=== PATIENT | male | born 1960 | race Caucasian/White ===

== ENCOUNTER 2017-08-10 04:32 | Observation (INO) | payer BC ==
[~2017-08-10] VITALS: Ht 190.5 cm; Wt 114.5 kg
[2017-08-10] VITALS (16 sets, daily range): BP systolic 124–190; BP diastolic 72–100; Ht 190.5 cm; Wt 114.5 kg
[~2017-08-10 04:32] MED LIST: ASPI1TAB35 PO; CHLOR25 PO
--- NOTE | 2017-08-10 04:47 | ER Report ---
History and Physical Time Seen By MD: 04:46 Hx. of Stated Complaint: Epigastric pain for a few days. Woke him from sleep at 0200. Pt states he is having trouble passing gas. NO chest pain or sob. HPI/ROS CHIEF COMPLAINT: abdominal pain HISTORY OF PRESENT ILLNESS: This is a 56 year old male. He has been having epigastric pain for a few days now. Woke from sleep tonight with worsening pain. Had a normal bowel movement yesterday, but feels bloated and trouble passing gas. Nothing makes the pain worse or better. Normal urination. No fevers or chills. Nausea, but no vomiting. REVIEW OF SYSTEMS: Cardiovascular: No chest pain. Respiratory: No cough. No shortness of breath. Musculoskeletal: No back pain. Skin: No rashes. Neurological: No weakness or numbness Allergies: Coded Allergies: No Known Drug Allergies (Unverified , 08/10/17) Home Meds Active Scripts Amoxicillin/Pot Clav 875-125 Mg Tab (AUGMENTIN 875-125 TABLET) 1 Each Tablet, 1 TAB PO Q12H, #4 TAB Prov:GIFTY THORNE MD 08/11/17 Ketorolac Tromethamine (KETOROLAC TROMETHAMINE) 10 Mg Tab, 10 MG PO Q6H, #16 TAB Prov:GIFTY THORNE MD 08/11/17 Hydrocodone Bit/Acetaminophen (NORCO 5-325 TABLET) 1 Each Tablet, 1 EACH PO Q4H Y for PAIN, #30 TAB Prov:GIFTY THORNE MD 08/11/17 Discontinued Reported Medications Aspirin/Acetaminophen/Caffeine (EXCEDRIN EXTRA STRENGTH CAPLET) 1 Each Tablet, 1 EACH PO 01/13/17 Discontinued Scripts Chlorthalidone (CHLORTHALIDONE) 25 Mg Tab, 25 MG PO QDAY, #30 TAB Prov:SOLITARIO VALENTINE DO 01/13/17 Reviewed Nurses Notes: Yes Hx Smoking: No Hx Substance Use Disorder: No Hx Alcohol Use: Yes (12 pack- a case a week. `) Constitutional Vital Sign - Last 24 Hours 08/10/17 08/10/17 08/10/17 08/10/17 04:37 04:41 04:44 04:47 Temp 98.3 Pulse 62 61 Resp 16 B/P (MAP) 189/115 (139) 189/115 171/118 (135) Pulse Ox 96 96 O2 Delivery Room Air 6/12/18 6/12/18 6/12/18 6/12/18 05:00 05:02 05:17 05:20 Pulse 67 61 B/P (MAP) 173/102 (125) 166/110 (128) Pulse Ox 99 08/10/17 08/10/17 08/10/17 08/10/17 05:32 05:37 06:00 06:05 Pulse 61 56 57 Resp 15 9 25 B/P (MAP) 195/87 (123) Pulse Ox 96 95 93 08/10/17 08/10/17 08/10/17 08/10/17 06:20 06:35 06:40 06:50 Pulse 60 56 59 Resp 14 20 B/P (MAP) 192/119 (143) 203/109 (140) Pulse Ox 90 93 08/10/17 08/10/17 07:00 07:05 Pulse 56 Resp 19 B/P (MAP) 170/91 (117) Pulse Ox 93 Physical Exam General Appearance: The patient is alert. No acute distress. Eyes: Pupils are equal, round. No pallor, injection or icterus. ENT: Mucous membranes are moist. Normal oral mucosa. Posterior oropharynx is normal. Neck: Supple and non tender. No lymphadenopathy. Respiratory: Lungs are clear to auscultation. Cardiovascular: Regular rate and rhythm. No murmurs, gallops or rubs. Normal capillary refill. Gastrointestinal: Abdomen has diffuse discomfort, worst in epigastric area. Nondistended. No rebound or guarding. Hyperactive bowel sounds. Neurological: Alert and oriented x3. Skin: Warm and dry. No rashes. Musculoskeletal: No tenderness in palpation of the cervical, thoracic and lumbar spine. DIFFERENTIAL DIAGNOSIS: After history and physical exam, differential diagnosis was considered for epigastric pain including but not limited to biliary colic, cholecystitis, peptic ulcer disease, pancreatitis, and gastroenteritis. Medical Decision Making Data Points Result Diagram: 08/10/17 0454 08/10/17 0454 Laboratory Hematology Test 08/10/17 04:53 08/10/17 04:54 Urine Color Yellow Urine Clarity Clear Urine pH 5.0 pH (4.8-9.5) Urine Specific [place] 1.024 Urine Protein Negative mg/dL (NEGATIVE) Urine Glucose (UA) Negative mg/dL (NEGATIVE) Urine Ketones Negative mg/dL (NEGATIVE) Urine Blood Small (NEGATIVE) Urine Nitrite Negative (NEGATIVE) Urine Bilirubin Negative (NEGATIVE) Urine Urobilinogen Negative mg/dL (0.2-1.9) Urine Leukocyte Esterase Negative (NEGATIVE) Urine RBC 1 /HPF (0-2/HPF) Urine WBC 1 /HPF (0-5/HPF) Urine Squamous Epithelial Cells Few /LPF (</=FEW) Urine Bacteria Negative /HPF (NONE-FEW) Urine Mucus Few /HPF (NONE-FEW) Red Blood Count 5.49 M/uL (4.00-5.60) Mean Corpuscular Volume 88.0 fL (80.0-96.0) Mean Corpuscular Hemoglobin 30.4 pg (26.0-33.0) Mean Corpuscular Hemoglobin Concent 34.5 g/dL (32.0-36.0) Red Cell Distribution Width 13.7 % (11.5-14.5) Mean Platelet Volume 7.4 fL (7.2-11.1) Neutrophils (%) (Auto) 74.2 % (39.4-72.5) Lymphocytes (%) (Auto) 16.0 % (17.6-49.6) Monocytes (%) (Auto) 8.8 % (4.1-12.4) Eosinophils (%) (Auto) 0.5 % (0.4-6.7) Basophils (%) (Auto) 0.5 % (0.3-1.4) Nucleated RBC Relative Count (auto) 0.0 /100WBC Neutrophils # (Auto) 7.5 K/uL (2.0-7.4) Lymphocytes # (Auto) 1.6 K/uL (1.3-3.6) Monocytes # (Auto) 0.9 K/uL (0.3-1.0) Eosinophils # (Auto) 0.0 K/uL (0.0-0.5) Basophils # (Auto) 0.1 K/uL (0.0-0.1) Nucleated RBC Absolute Count (auto) 0.00 K/uL Sodium Level 137 mmol/L (137-145) Potassium Level 4.2 mmol/L (3.5-5.0) Chloride Level 97 mmol/L (98-107) Carbon Dioxide Level 27 mmol/L (22-30) Blood Urea Nitrogen 19 mg/dl (9-21) Creatinine 0.90 mg/dl (0.66-1.25) Glomerular Filtration Rate Calc > 60.0 Random Glucose 126 mg/dl (75-110) Lactate 1.7 mmol/L (0.7-2.1) Calcium Level 9.5 mg/dl (8.4-10.2) Total Bilirubin 1.6 mg/dl (0.2-1.3) Aspartate Amino Transf (AST/SGOT) 35 U/L (0-35) Alanine Aminotransferase (ALT/SGPT) 57 U/L (0-56) Alkaline Phosphatase 117 U/L (0-126) C-Reactive Protein 2.7 mg/dl (<1.0) Total Protein 7.1 gm/dl (6.3-8.2) Albumin 4.3 g/dl (3.5-5.0) Amylase Level < 30 U/L (0-110) Lipase 121 U/L (23-300) Helicobacter pylori IgG Antibody Negative (NEGATIVE) Chemistry Test 08/10/17 04:53 08/10/17 04:54 Urine Color Yellow Urine Clarity Clear Urine pH 5.0 pH (4.8-9.5) Urine Specific [place] 1.024 Urine Protein Negative mg/dL (NEGATIVE) Urine Glucose (UA) Negative mg/dL (NEGATIVE) Urine Ketones Negative mg/dL (NEGATIVE) Urine Blood Small (NEGATIVE) Urine Nitrite Negative (NEGATIVE) Urine Bilirubin Negative (NEGATIVE) Urine Urobilinogen Negative mg/dL (0.2-1.9) Urine Leukocyte Esterase Negative (NEGATIVE) Urine RBC 1 /HPF (0-2/HPF) Urine WBC 1 /HPF (0-5/HPF) Urine Squamous Epithelial Cells Few /LPF (</=FEW) Urine Bacteria Negative /HPF (NONE-FEW) Urine Mucus Few /HPF (NONE-FEW) White Blood Count 10.1 k/uL (4.5-11.0) Red Blood Count 5.49 M/uL (4.00-5.60) Hemoglobin 16.7 g/dL (14.0-18.0) Hematocrit 48.3 % (42.0-52.0) Mean Corpuscular Volume 88.0 fL (80.0-96.0) Mean Corpuscular Hemoglobin 30.4 pg (26.0-33.0) Mean Corpuscular Hemoglobin Concent 34.5 g/dL (32.0-36.0) Red Cell Distribution Width 13.7 % (11.5-14.5) Platelet Count 277 K/uL (150-450) Mean Platelet Volume 7.4 fL (7.2-11.1) Neutrophils (%) (Auto) 74.2 % (39.4-72.5) Lymphocytes (%) (Auto) 16.0 % (17.6-49.6) Monocytes (%) (Auto) 8.8 % (4.1-12.4) Eosinophils (%) (Auto) 0.5 % (0.4-6.7) Basophils (%) (Auto) 0.5 % (0.3-1.4) Nucleated RBC Relative Count (auto) 0.0 /100WBC Neutrophils # (Auto) 7.5 K/uL (2.0-7.4) Lymphocytes # (Auto) 1.6 K/uL (1.3-3.6) Monocytes # (Auto) 0.9 K/uL (0.3-1.0) Eosinophils # (Auto) 0.0 K/uL (0.0-0.5) Basophils # (Auto) 0.1 K/uL (0.0-0.1) Nucleated RBC Absolute Count (auto) 0.00 K/uL Glomerular Filtration Rate Calc > 60.0 Lactate 1.7 mmol/L (0.7-2.1) Calcium Level 9.5 mg/dl (8.4-10.2) Total Bilirubin 1.6 mg/dl (0.2-1.3) Aspartate Amino Transf (AST/SGOT) 35 U/L (0-35) Alanine Aminotransferase (ALT/SGPT) 57 U/L (0-56) Alkaline Phosphatase 117 U/L (0-126) C-Reactive Protein 2.7 mg/dl (<1.0) Total Protein 7.1 gm/dl (6.3-8.2) Albumin 4.3 g/dl (3.5-5.0) Amylase Level < 30 U/L (0-110) Lipase 121 U/L (23-300) Helicobacter pylori IgG Antibody Negative (NEGATIVE) Urinalysis Test 08/10/17 04:53 Urine Color Yellow Urine Clarity Clear Urine pH 5.0 pH (4.8-9.5) Urine Specific [place] 1.024 Urine Protein Negative mg/dL (NEGATIVE) Urine Glucose (UA) Negative mg/dL (NEGATIVE) Urine Ketones Negative mg/dL (NEGATIVE) Urine Blood Small (NEGATIVE) Urine Nitrite Negative (NEGATIVE) Urine Bilirubin Negative (NEGATIVE) Urine Urobilinogen Negative mg/dL (0.2-1.9) Urine Leukocyte Esterase Negative (NEGATIVE) Urine RBC 1 /HPF (0-2/HPF) Urine WBC 1 /HPF (0-5/HPF) Urine Squamous Epithelial Cells Few /LPF (</=FEW) Urine Bacteria Negative /HPF (NONE-FEW) Urine Mucus Few /HPF (NONE-FEW) EKG/Imaging Imaging ABDOMEN/PELVIS WITH CONTRAST HISTORY: Epigastric pain for 3 days. History of hernia. COMPARISON: None. TECHNIQUE: Axial images were obtained from the lung bases through the symphysis pubis with intravenous contrast. Sagittal and coronal reformats were performed. One of the following dose optimization techniques was utilized in the performance of this exam: Automated exposure control; adjustment of the mA and/ or kV according to the patient's size; or use of an iterative reconstruction technique. Specific details can be referenced in the facility's radiology CT exam operational policy. CONTRAST: 75 mL IV Isovue-370. FINDINGS: Lower chest: Normal. Liver: Normal. Gallbladder/biliary: Gallbladder is diffusely enlarged, measuring greater than 12 cm in length, and there are inflammation and a small amount of fluid surrounding the gallbladder and tracking adjacent to the duodenum and inferiorly within the abdomen and pelvis. No intrahepatic or extrahepatic ductal dilation. Pancreas: Normal. Spleen: Normal. Adrenals: Normal. Kidneys/ureters/bladder: Normal. GI/mesentery/peritoneal cavity: There is no bowel obstruction. There is no wall thickening or pericolonic stranding. The appendix is normal. No intra-abdominal free air. Vessels: There is mild atherosclerotic disease without aneurysm. No dissection. Nodes: Normal. Pelvis: Trace free fluid, likely secondary to cholecystitis. There are pelvic phleboliths. There are moderate size bilateral fat-containing inguinal hernias. There are surgical clips in the anterior right lower quadrant that may relate to prior inguinal hernia repair. Bones/vertebra/soft tissues: There is a fluid attenuating structure tracking anterior to the left proximal femur (image 188 series 2) and anterolateral to the left ischium, potentially a bursa. It measures 4 cm in size. There is irregularity and deformity of the left ischium and there are adjacent soft tissue calcifications. These findings may all relate to previous trauma. There is mild degenerative change of the spine. There is 3 mm retrolisthesis of L4 compared to L5. Vertebral body heights are maintained. There are prominent flowing anterior osteophytes, compatible with diffuse idiopathic skeletal hyperostosis that extends from T6 through T11. More inferior osteophytes are not fused. IMPRESSION: 1. Findings are compatible with cholecystitis. No calcified gallstones. These findings were discussed by phone with NILSA WU on 08/10/2017 6:16 AM. Report Dictated By: Tisha Orozco at 08/10/2017 6:02 AM ED Course/Re-evaluation Clinical Indication for ER IV: Hydration, IV Access ED Course Initially given Morphine and Zofran. Bassett like the Morphine amplified the pain. Given Dilaudid 1mg for pain which did help. His labs are fairly unremarkable, but CT scan shows significant inflammation and enlarged gallbladder. Called Dr. Thorne who will be coming to evaluate the patient for Cholecystitis. Decision to Disposition Date: Aug 10, 2017 Decision to Disposition Time: 07:00 Depart Departure Latest Vital Signs Vital Signs Date Time Temp Pulse Resp B/P (MAP) Pulse Ox O2 Delivery O2 Flow Rate FiO2 08/10/17 07:05 56 19 93 08/10/17 07:00 170/91 (117) 08/10/17 04:41 98.3 Room Air Impression: Primary Impression: Cholecystitis Condition: Improved Disposition: ADMIT FROM ER TO OR New Scripts Amoxicillin/Pot Clav 875-125 Mg Tab (AUGMENTIN 875-125 TABLET) 1 Each Tablet 1 TAB PO Q12H, #4 TAB Prov: GIFTY THORNE MD 08/11/17 Ketorolac Tromethamine (KETOROLAC TROMETHAMINE) 10 Mg Tab 10 MG PO Q6H, #16 TAB Prov: GIFTY THORNE MD 08/11/17 Hydrocodone Bit/Acetaminophen (NORCO 5-325 TABLET) 1 Each Tablet 1 EACH PO Q4H Y for PAIN, #30 TAB Prov: GIFTY THORNE MD 08/11/17 NILSA WU MD Aug 10, 2017 04:47
[2017-08-10] MEDS ORDERED: NS(*) 0.9% 1000 ML BAG 1,000 ML IV ONE (04:53)
[2017-08-10] MEDS ORDERED: MORPHINE 4 MG/ML SDV IVP ONE (04:55)
[2017-08-10] MEDS ORDERED: PANTOPRAZOLE SOD 40 MG IV VIAL IVP ONE (04:55)
[2017-08-10] MEDS ORDERED: ONDANSETRON 4 MG/2 ML VIAL IVP ONE (04:55)
[2017-08-10 05:02] LABS: PLATELET COUNT, AUTOMATED 277 K/uL (150-450)
[2017-08-10] MEDS ORDERED: IOPAMIDOL 76% 75 ML INFUS BTL 75 ML ONE (05:08)
[2017-08-10] MEDS ORDERED: HYDROmorphone* 1 MG/ML 1 MG/ML ML IVP ONE (06:05)
--- NOTE | 2017-08-10 06:24 | RADIOLOGY IMAGING REPORT ---
FACILITY: [facility] PATIENT NAME: Junior Gibbs : 1960 MR: [id number] V: [id number] EXAM DATE: ORDERING PHYSICIAN: NILSA WU TECHNOLOGIST: Location: [facility] Patient: Junior Gibbs : 1960 Visit/Account:[id number] Date of Sevice: 08/10/2017 ABDOMEN/PELVIS WITH CONTRAST HISTORY: Epigastric pain for 3 days. History of hernia. COMPARISON: None. TECHNIQUE: Axial images were obtained from the lung bases through the symphysis pubis with intravenou s contrast. Sagittal and coronal reformats were performed. One of the following dose optimization techniques was utilized in the performance of this exam: Autom ated exposure control; adjustment of the mA and/or kV according to the patient's size; or use of an i terative reconstruction technique. Specific details can be referenced in the facility's radiology CT exam operational policy. CONTRAST: 75 mL IV Isovue-370. FINDINGS: Lower chest: Normal. Liver: Normal. Gallbladder/biliary: Gallbladder is diffusely enlarged, measuring greater than 12 cm in length, and t here are inflammation and a small amount of fluid surrounding the gallbladder and tracking adjacent t o the duodenum and inferiorly within the abdomen and pelvis. No intrahepatic or extrahepatic ductal d ilation. Pancreas: Normal. Spleen: Normal. Adrenals: Normal. Kidneys/ureters/bladder: Normal. GI/mesentery/peritoneal cavity: There is no bowel obstruction. There is no wall thickening or pericol onic stranding. The appendix is normal. No intra-abdominal free air. Vessels: There is mild atherosclerotic disease without aneurysm. No dissection. Nodes: Normal. Pelvis: Trace free fluid, likely secondary to cholecystitis. There are pelvic phleboliths. There are moderate size bilateral fat-containing inguinal hernias. There are surgical clips in the anterior rig ht lower quadrant that may relate to prior inguinal hernia repair. Bones/vertebra/soft tissues: There is a fluid attenuating structure tracking anterior to the left pro ximal femur (image 188 series 2) and anterolateral to the left ischium, potentially a bursa. It measu res 4 cm in size. There is irregularity and deformity of the left ischium and there are adjacent soft tissue calcifications. These findings may all relate to previous trauma. There is mild degenerative change of the spine. There is 3 mm retrolisthesis of L4 compared to L5. Ve rtebral body heights are maintained. There are prominent flowing anterior osteophytes, compatible wit h diffuse idiopathic skeletal hyperostosis that extends from T6 through T11. More inferior osteophyte s are not fused. IMPRESSION: 1. Findings are compatible with cholecystitis. No calcified gallstones. These findings were discussed by phone with NILSA WU on 08/10/2017 6:16 AM. Report Dictated By: Tisha Orozco at 08/10/2017 6:02 AM Report E-Signed By: Tisha Orozco at 08/10/2017 6:20 AM WSN:[id number]
[2017-08-10] MEDS ORDERED: PIPERACILLIN/TAZO*3.375GM VIAL 3.375 GM in NS(*) 0.9% 100 ML ADDVANT BAG 100 ML IVPB ONE (07:05)
[2017-08-10] MEDS ORDERED: NORMOSOL R SOLN(*) 1000 ML BAG 1,000 ML IV PRN ×2 (07:11→14:45)
[2017-08-10] MEDS ORDERED: MORPHINE 1 MG/ML 30 ML PCA IV PRN (07:15)
[2017-08-10] MEDS ORDERED: ONDANSETRON 4 MG/2 ML VIAL IVP PRN (07:15)
[2017-08-10] MEDS ORDERED: PIPERACILLIN/TAZO*3.375GM VIAL 3.375 GM in NS(*) 0.9% 100 ML ADDVANT BAG 100 ML IVPB SCH ×2 (08:00→14:00)
--- NOTE | 2017-08-10 08:12 | General Surgery 1 H&P ---
History of Present Illness Chief Complaint epigastric pain History of Present Illness 56 yo male with a history of htn presents with a 2 day history of epigastric pain. it is steady and severe. no nausea or emesis. he has fever and chills. no change in bms no urinary complaints. no radiation to the back. he had a similar episode several months ago. seen in ed, ct suggests acute cholecystitis. History Other Past Surgeries: legs, hernia repair inguinal and finger Home Meds Discontinued Reported Medications Aspirin/Acetaminophen/Caffeine (EXCEDRIN EXTRA STRENGTH CAPLET) 1 Each Tablet, 1 EACH PO 01/13/17 Discontinued Scripts Chlorthalidone (CHLORTHALIDONE) 25 Mg Tab, 25 MG PO QDAY, #30 TAB Prov:SOLITARIO VALENTINE DO 01/13/17 Allergies: Coded Allergies: No Known Drug Allergies (Unverified , 08/10/17) Review of Systems History of Hypertension?: Yes History of Diabetes?: No History of DVT?: No Obstructive Sleep Apnea?: No History of Liver Disease?: No History of Kidney Disease?: No Respiratory: Denies Shortness of Breath, Denies Other Cardiovascular: Denies Chest Pain, Denies Other : Denies Dysuria, Denies Other Exam Vital Signs Date Time Temp Pulse Resp B/P (MAP) Pulse Ox O2 Delivery O2 Flow Rate FiO2 08/10/17 08:01 98.4 57 20 83 Room Air General Appearance: Alert, Awake GI: Other (tender to plapation in the epigastrium) Medical Decision Making Data Points Result Diagram: 08/10/17 0454 08/10/17 0454 Assessment and Plan Problems: (1) Cholecystitis Status: Acute Assessment & Plan: lap conrado with gram today. Copies to: GIFTY MEJIA MD Venous Thromboembolism Antithrombotics Is Pt On Any Antithrombotics?: No GIFTY MEJIA MD Aug 10, 2017 08:12
[2017-08-10] MEDS ORDERED: PANTOPRAZOLE SOD 40 MG IV VIAL IVP SCH (09:00)
[2017-08-10] MEDS ORDERED: IOPAMIDOL 61% 75 ML INFUS BTL 75 ML ONE (10:34)
[2017-08-10] MEDS ORDERED: ROPIVACAINE 0.2% 20 ML VIAL ONE (10:34)
[2017-08-10] MEDS ORDERED: fentaNYL CITR 250 MCG/5 ML AMP ONE (12:51)
[2017-08-10] MEDS ORDERED: LIDOCAINE MPF 1% 5 ML VIAL ONE (12:52)
[2017-08-10] MEDS ORDERED: PROPOFOL EMUL(*) 10MG/ML 20 ML 20 ML ONE (12:52)
[2017-08-10] MEDS ORDERED: ROCURONIUM BROM 10 MG/ML 10 ML ONE (13:00)
[2017-08-10] MEDS ORDERED: SUCCINYLCHOL CHL 200MG/10ML VL ONE (13:00)
[2017-08-10] MEDS ORDERED: DEXAMETHASONE SOD 4 MG/ML VIAL ONE (13:06)
[2017-08-10] MEDS ORDERED: ONDANSETRON 4 MG/2 ML VIAL ONE (13:07)
[2017-08-10] MEDS ORDERED: fentaNYL CITR 100 MCG/2 ML AMP ONE ×3 (13:30→15:08)
[2017-08-10] MEDS ORDERED: SUGAMMADEX SOD 500 MG/5 ML SDV ONE (13:41)
[2017-08-10] MEDS ORDERED: KETOROLAC 30 MG/ML VIAL ONE (14:27)
[2017-08-10] MEDS ORDERED: APAP/HYDROCODONE 325/5 TAB PO PRN (14:45)
--- NOTE | 2017-08-10 14:45 | Post Operative Progress Note ---
Post Operative Progress Note Date: Aug 10, 2017 Time: 14:44 Surgeon: josh Anesthesia: dr gay Pre-Op Diagnosis: acute cholecystitits Post-Op Diagnosis: gangrenous cholesystitis Procedure(s): lap conrado with GIFTY Schmitt MD Aug 10, 2017 14:45
--- NOTE | 2017-08-10 16:00 | RADIOLOGY IMAGING REPORT ---
FACILITY: [facility] - [place] PATIENT NAME: Junior Gibbs : 1960 MR: [id number] V: [id number] EXAM DATE: ORDERING PHYSICIAN: GIFTY MEJIA TECHNOLOGIST: Location: [facility] [place] Patient: Junior Gibbs : 1960 Visit/Account:[id number] Date of Sevice: 08/10/2017 Exam type: CHOLANGIOGRAM OPERATIVE History: CHOLECYSITIS Comparison: CT abdomen pelvis performed earlier in the day. Findings: Contrast is seen in the right and left hepatic ducts common hepatic duct, common bile duct with free flow of contrast into the duodenum. No intraluminal filling defects identified in the visualized por tion the biliary tree. The total fluoroscopy time was 31.5 seconds. The total cumulative fluoroscop y dose was 0.28836 mGray per meter squared IMPRESSION: 1. As above Report Dictated By: Elisha Lopez MD at 08/10/2017 3:52 PM Report E-Signed By: Elisha Lopez MD at 08/10/2017 3:56 PM WSN:[id number]
[2017-08-10] MEDS: PIPERACILLIN/TAZO*3.375GM VIAL 3.375 GM in NS(*) 0.9% 100 ML ADDVANT BAG 100 ML IVPB SCH ×2 (17:07→22:44)
--- NOTE | 2017-08-10 17:15 | OPERATIVE REPORT 1 ---
EVENT DATE: August 10, 2017 SURGEON: Sanjiv Thorne MD ANESTHESIOLOGIST: Abraham Bird MD ANESTHESIA: General. PREOPERATIVE DIAGNOSIS Acute cholecystitis. POSTOPERATIVE DIAGNOSIS Acute gangrenous cholecystitis. PROCEDURE PERFORMED Laparoscopic cholecystectomy with intraoperative cholangiogram. DESCRIPTION OF PROCEDURE The patient was placed in the supine position and given general anesthetic. His abdomen was prepped and draped in a sterile fashion. We anesthetized the skin with 0.2% ropivacaine, made a small incision above the umbilicus, inserted the Veress needle, insufflated the abdomen with CO2, placed a 5 mm port under direct vision, placed two 5 mm in the subcostal region and 10 mm in the epigastrium. Patient was placed in reverse Trendelenburg and rotated to the left. The gallbladder was distended, acutely inflamed, and the tip that we could see was gangrenous. He had a adhesions plastered to the inferior portion of the gallbladder. These were taken down with blunt dissection. We could not grasp the gallbladder, so it was aspirated. After the fluid was removed, we were able to grasp the gallbladder, raised it cephalad. We then dissected out the cystic duct-gallbladder junction, dissected out a good length of the cystic duct, and dissected out the cystic artery. It was doubly clipped proximally, once distally, and transected. We then opened the cystic duct, inserted a Taut catheter, tried to obtain a cholangiogram, but it would not flow, so we had to dissect the cystic duct down further and milk the duct back. We got some sludge and stones out of the gallbladder. At this point, we reinserted the Taut catheter and obtained cholangiograms which showed good flow in the duodenum , nice tapering of the distal duct, and no filling defects. Clip was removed. Taut catheter was removed. Cystic duct was triply clipped proximally and transected. We then dissected out another branch of the cystic artery. This was clipped proximally and distally and transected. We then continued our dissection with electrocautery. Posterior wall of the gallbladder was gangrenous and dove in appearance. We continued our dissection to the fundus of the gallbladder. After the gallbladder was removed, we placed an Endo Pouch , removed it from the epigastric. We suctioned, irrigated, and inspected for bleeding. We had excellent hemostasis in the gallbladder fossa. Ports were removed under direct vision. No bleeding was noted. The epigastric port site was closed with 0 Vicryl in the fascia because we had to extend it to get the inflamed gallbladder out. The skin was closed with interrupted 4-0 Maxon. Steri-Strips and Airstrip were placed. The patient tolerated the procedure well. No apparent complications. TANNA
[2017-08-10] MEDS: KETOROLAC 30 MG/ML VIAL IVP SCH (21:00)
[2017-08-11 00:39] VITALS: BP 135/80
[2017-08-11] MEDS: KETOROLAC 30 MG/ML VIAL IVP SCH (02:35)
[2017-08-11 04:10] VITALS: BP 121/76
[2017-08-11] MEDS: PIPERACILLIN/TAZO*3.375GM VIAL 3.375 GM in NS(*) 0.9% 100 ML ADDVANT BAG 100 ML IVPB SCH (04:15)
[2017-08-11 07:47] VITALS: BP 143/96
--- NOTE | 2017-08-11 07:53 | General Surgery Progress Note ---
Subjective Progress Notes Subjective pt complains of incisional pain. tolerating diet. voiding, ambulating Physical Exam Vital Signs Date Time Temp Pulse Resp B/P (MAP) Pulse Ox O2 Delivery O2 Flow Rate FiO2 08/11/17 07:47 97.6 66 18 143/96 (112) 88 Room Air 08/11/17 04:10 1.0 General Appearance: Alert, Awake, No Acute Distress GI: Other (firm, mild tenderness) Result Diagram: 08/10/17 0454 08/10/17 0454 Assessment and Plan Problems: (1) Cholecystitis Status: Acute Assessment & Plan: lap conrado with gram today. 08/11/17 doing well. home today Exam Sepsis Risk: No Definite Risk GIFTY MEJIA MD Aug 11, 2017 07:53
[2017-08-11] MEDS ORDERED: HYDR-4309 PO (07:55)
[2017-08-11] MEDS ORDERED: AMOX-559 PO (07:55)
[2017-08-11] MEDS ORDERED: KET10 PO (07:55)
--- NOTE | 2017-08-11 07:57 | Short(Outpt) Discharge Summary ---
Discharge Summary Reason for Hosp/Final Diag: (1) Cholecystitis Status: Acute Hospital Course & Plan: lap conrado with gram today. 08/11/17 doing well. home today Departure Discharge to: Home Discharge Instructions Home Meds Active Scripts Amoxicillin/Pot Clav 875-125 Mg Tab (AUGMENTIN 875-125 TABLET) 1 Each Tablet, 1 TAB PO Q12H, #4 TAB Prov:GIFTY MEJIA MD 08/11/17 Ketorolac Tromethamine (KETOROLAC TROMETHAMINE) 10 Mg Tab, 10 MG PO Q6H, #16 TAB Prov:GIFTY MEJIA MD 08/11/17 Hydrocodone Bit/Acetaminophen (NORCO 5-325 TABLET) 1 Each Tablet, 1 EACH PO Q4H Y for PAIN, #30 TAB Prov:GIFTY MEJIA MD 08/11/17 Discontinued Reported Medications Aspirin/Acetaminophen/Caffeine (EXCEDRIN EXTRA STRENGTH CAPLET) 1 Each Tablet, 1 EACH PO 01/13/17 Discontinued Scripts Chlorthalidone (CHLORTHALIDONE) 25 Mg Tab, 25 MG PO QDAY, #30 TAB Prov:SOLITARIO VALENTINE DO 01/13/17 Diet: Regular Activity: As Tolerated Special Instructions: ice to incision for 24 hours remove bandage and shower tomorrow to follow up with dr marte in 10-14 days Copies to: SOLITARIO MARTE MD, TOM MD Aug 11, 2017 07:57
== END 2017-08-11 07:58 | disposition home or self-care (01) ==
LOC: ER 05:10 → INTOOBSV 07:25 → MED 07:25
PROVIDERS: ADMIT Surgery; ATTEND Surgery
DX: K81.0 Acute cholecystitis (principal)
CPT/HCPCS: 36415; 47563; 74177; 74300; 81001; 82150; 83605; 83690; 85025; 86140; 86677; 88304; 96361; 96374; 99284; C9113; G0378; J0330; J1100; J1170; J1885; J2001; J2270; J2405; J2543; J2704; J2795; J3010; J7030; J7050; Q9967; 82040; 82247; 82310; 82374; 82435; 82565; 82947; 84075; 84132; 84155; 84295; 84450; 84460; 84520